=== PATIENT | female | born 1950 | race Caucasian/White ===

== ENCOUNTER 2021-02-28 13:16 | Inpatient (IN) ==
[2021-02-28] MEDS ORDERED: 0.9 % Sodium Chloride 1,000 ML IV ONE (14:20)
[2021-02-28 14:31] LABS: Basophils # 0.1 K/mcL (0.0-0.2); Basophils % 0.4 %; Eosinophils # 0.1 K/mcL (0.0-0.6); Hematocrit 49.1 % (35.3-44.9); Hemoglobin 16.1 g/dL (11.5-15.4); Immature Granulocytes % 0.6 % (0-4); Lymphocytes # 1.6 K/mcL (0.6-4.6); Lymphocytes % 14.3 %; Mean Corpuscular HGB Conc 32.8 g/dL (31.6-35.5); Mean Corpuscular Hemoglobin 29.4 pg (28.0-33.3); Mean Corpuscular Volume 89.8 fL (83.0-100.0); Mean Platelet Volume 10.4 fL (9.4-12.4); Monocytes # 1.3 K/mcL (0.0-1.3); Monocytes % 11.7 %; Neutrophils # 8.2 K/mcL (1.6-8.9); Platelet Count 240 K/mcL (140-400); Red Blood Count 5.47 M/mcL (3.82-4.97); Red Cell Distribution Width 13.9 % (11.5-14.5); White Blood Count 11.4 K/mcL (4.3-11.1)
[2021-02-28 14:38] LABS: INR 1.2; Prothrombin Time 13.3 Seconds (9.4-12.1)
[2021-02-28 14:41] LABS: Activated Partial Thrombo Time 33.7 Seconds (26.0-36.0)
[2021-02-28 15:07] LABS: Bilirubin,Urine Negative (Negative); Blood,Urine Trace (Negative); Clarity,Urine Clear (Clear); Color,Urine Light-Yellow (Yellow); Glucose,Urine (UA) >=1000 mg/dL (Normal); Ketones,Urine 60 mg/dL (Negative); Leukocyte Esterase,Urine Negative (Negative); Nitrite,Urine Negative (Negative); Protein,Urine 30 mg/dL (Neg-Trace); RBC,Urine 0-3 per hpf (0-3); Specific Gravity,Urine 1.025 (1.010-1.025); Squamous Epithelial Cell,Urine Few per hpf (None-Few); Urobilinogen,Urine Normal (Normal)
[2021-02-28] MEDS ORDERED: Isovue-370 500 ML BOTTLE IVP ONE (15:13)
[2021-02-28] MEDS ORDERED: Aspirin 325 MG TABLET PO ONE (15:15)
[2021-02-28 15:16] LABS: Amphetamine Screen,Urine Negative ng/mL (Cutoff=1000); Barbiturate Screen,Urine Negative ng/mL (Cutoff=200); Benzodiazepines Screen,Urine Negative ng/mL (Cutoff=200); Cannabinoid Screen,Urine Negative ng/mL (Cutoff = 50); Cocaine Screen,Urine Negative ng/mL (Cutoff= 300); Opiate Screen,Urine Negative ng/mL (Cutoff=300); Phencyclidine Screen,Urine Negative ng/mL (Cutoff=25)
[2021-02-28 15:33] LABS: Alanine Aminotransferase 15 Units/L (7-52); Albumin 4.4 g/dL (3.5-5.7); Albumin/Globulin Ratio 1.5 (1.1-2.2); Alkaline Phosphatase 73 Units/L (34-104); Aspartate Amino Transferase 15 Units/L (13-39); BUN/Creatinine Ratio 16 (6-26); Bilirubin,Direct 0.3 mg/dL (0.0-0.2); Bilirubin,Total 3.3 mg/dL (0.3-1.0); Blood Urea Nitrogen 12 mg/dL (8-23); Carbon Dioxide 29 mEq/L (23-29); Chloride 97 mEq/L (98-107); Ethanol < 10 mg/dL (Less than 10); Glucose 372 mg/dL (70-105); Osmolality,Calculated 297 (280-300); Potassium 3.8 mEq/L (3.5-5.1); Sodium 136 mEq/L (136-145); Thyroid Stimulating Hormone 2.878 mcIU/mL (0.340-5.600); Total Protein 7.4 g/dL (6.4-8.9); Troponin I < 0.03 ng/mL (< 0.04); eGFR For African Americans > 60 (> 60); eGFR For Non-African Americans > 60 (> 60)
[2021-02-28] MEDS ORDERED: Naloxone 0.4 MG/ML INJ IVP PRN (17:53)
[2021-02-28] MEDS ORDERED: Mag Hydrox/Al Hydrox/Simeth 30 ML UDC PO PRN (17:53)
[2021-02-28] MEDS ORDERED: Ondansetron ODT 4 MG TAB.RAPDIS SL PRN (17:53)
[2021-02-28] MEDS ORDERED: MOM Conc 10 ML UD.LIQ PO PRN (17:53)
[2021-02-28] MEDS ORDERED: Dextrose Gel 15 GM/37.5 ML TUBE PO PRN ×2 (17:57)
[2021-02-28] MEDS ORDERED: *HR* Dextrose 50 % in Water (Syg) 50 ML SYRINGE IVP PRN (17:57)
[2021-02-28] MEDS ORDERED: D5% in Water 1,000 ML IVC PRN (17:57)
[2021-02-28] MEDS ORDERED: Perflutren Lipid Microsphere 1.3 ML in 0.9 % Sodium Chloride 8.7 ML IVP PRN (19:37)
[2021-02-28] MEDS: Insulin LISPRO 300 UNITS/3 ML VIAL SUBQ SCH (20:44)
[2021-02-28] MEDS ORDERED: Insulin LISPRO 300 UNITS/3 ML VIAL SUBQ SCH (21:00)
[2021-02-28] MEDS ORDERED: Insulin DETEMIR 100 UNIT/ML X5UNITS SUBQ SCH (21:00)
[2021-02-28] MEDS: Melatonin 3 MG TABLET PO PRN (22:06)
[2021-02-28 22:30] LABS: Estimated Average Glucose 163 mg/dl; Hemoglobin A1C 7.3 %
[2021-02-28 22:39] LABS: ABG Base Excess 0 mEq/L (-2 to 3); ABG HCO3 22 mEq/L (21-27); ABG Oxygen Saturation 95 % (95-98); ABG PCO2 28 mmHg (35-45); ABG PO2 67 mmHg (85-104); ABG TCO2 23 mEq/L (20-26)
[2021-03-01 05:03] LABS: INR 1.3; Prothrombin Time 14.3 Seconds (9.4-12.1)
[2021-03-01 05:11] LABS: Alanine Aminotransferase 11 Units/L (7-52); Albumin/Globulin Ratio 1.6 (1.1-2.2); Alkaline Phosphatase 62 Units/L (34-104); Aspartate Amino Transferase 16 Units/L (13-39); BUN/Creatinine Ratio 18 (6-26); Bilirubin,Total 2.9 mg/dL (0.3-1.0); Blood Urea Nitrogen 13 mg/dL (8-23); Calcium 9.4 mg/dL (8.6-10.3); Carbon Dioxide 25 mEq/L (23-29); Chloride 99 mEq/L (98-107); Chol/HDL Ratio 5.7 (0-4.9); Cholesterol 251 mg/dL (< 200); Globulin 2.5 g/dL (2.4-3.5); Glucose 345 mg/dL (70-105); HDL Cholesterol 44 mg/dL (40-59); LDL Cholesterol,Calculated 182 mg/dL (< 100); Osmolality,Calculated 296 (280-300); Potassium 3.7 mEq/L (3.5-5.1); Sodium 136 mEq/L (136-145); Total Protein 6.5 g/dL (6.4-8.9); Triglycerides 126 mg/dL (< 150); Troponin I < 0.03 ng/mL (< 0.04); eGFR For African Americans > 60 (> 60); eGFR For Non-African Americans > 60 (> 60)
[2021-03-01 05:12] LABS: Estimated Average Glucose 163 mg/dl; Hemoglobin A1C 7.3 %
[2021-03-01] MEDS: *HR* Enoxaparin 40 MG/0.4 ML SYRINGE SQ SCH (06:24)
[2021-03-01 06:32] LABS: Hepatitis B Surface Antigen Nonreactive (Nonreactive)
[2021-03-01 07:01] LABS: Hepatitis C Virus Antibody Nonreactive (Nonreactive)
[2021-03-01 07:02] LABS: Hepatitis B Core IgM Nonreactive (Nonreactive)
[2021-03-01 07:04] LABS: Hepatitis A Antibody IgM Nonreactive (Nonreactive)
[2021-03-01] MEDS ORDERED: Aspirin 81 MG TAB.CHEW PO SCH (09:00)
[2021-03-01] MEDS: Insulin LISPRO 300 UNITS/3 ML VIAL SUBQ SCH ×4 (09:09→20:39)
[2021-03-01] MEDS: cefTRIAXone 1,000 MG in 0.9 % Sodium Chloride Mini Bag 100 ML IVPB SCH (12:09)
[2021-03-01] MEDS: lisinopriL 5 MG TABLET PO SCH (14:22)
[2021-03-01] MEDS: PARoxetine 20 MG TABLET PO SCH (14:22)
[2021-03-01] MEDS: atenoloL 50 MG TABLET PO SCH (14:22)
[2021-03-01] MEDS ORDERED: Insulin DETEMIR 100 UNIT/ML X5UNITS SUBQ SCH (21:00)
[2021-03-01] MEDS: QUEtiapine Fumarate 25 MG TABLET PO PRN (22:41)
[2021-03-01] MEDS: Melatonin 3 MG TABLET PO PRN (22:42)
[2021-03-02] MEDS: *HR* Enoxaparin 40 MG/0.4 ML SYRINGE SQ SCH (06:15)
[2021-03-02] MEDS: lisinopriL 5 MG TABLET PO SCH (08:34)
[2021-03-02] MEDS: PARoxetine 20 MG TABLET PO SCH (08:34)
[2021-03-02] MEDS: Aspirin Enteric Coated 81 MG Tablet PO SCH (08:35)
[2021-03-02] MEDS: cefTRIAXone 1,000 MG in 0.9 % Sodium Chloride Mini Bag 100 ML IVPB SCH (08:35)
[2021-03-02] MEDS: atenoloL 50 MG TABLET PO SCH (08:35)
[2021-03-02] MEDS: Insulin LISPRO 300 UNITS/3 ML VIAL SUBQ SCH ×4 (10:03→20:23)
[2021-03-02] MEDS ORDERED: Artificial Tears SOLN 15 ML BOTTLE BOTH EYES PRN (10:35)
[2021-03-02] MEDS ORDERED: Insulin DETEMIR 100 UNIT/ML X5UNITS SUBQ SCH (21:00)
[2021-03-03] MEDS ORDERED: *HR* LORazepam 2 MG/ML VIAL IVP ONE (02:06)
[2021-03-03] MEDS: *HR* Enoxaparin 40 MG/0.4 ML SYRINGE SQ SCH (05:42)
[2021-03-03] MEDS: Aspirin Enteric Coated 81 MG Tablet PO SCH (09:10)
[2021-03-03] MEDS: atenoloL 50 MG TABLET PO SCH (09:11)
[2021-03-03] MEDS: PARoxetine 20 MG TABLET PO SCH (09:11)
[2021-03-03] MEDS: lisinopriL 5 MG TABLET PO SCH (09:12)
[2021-03-03] MEDS: Insulin LISPRO 300 UNITS/3 ML VIAL SUBQ SCH ×4 (09:12→21:09)
[2021-03-03] MEDS: Insulin DETEMIR 100 UNIT/ML X5UNITS SUBQ SCH (21:08)
[2021-03-04] MEDS: QUEtiapine Fumarate 25 MG TABLET PO PRN (01:52)
[2021-03-04] MEDS: Melatonin 3 MG TABLET PO PRN (01:52)
[2021-03-04] MEDS: *HR* Enoxaparin 40 MG/0.4 ML SYRINGE SQ SCH (04:51)
[2021-03-04] MEDS: Aspirin Enteric Coated 81 MG Tablet PO SCH (09:14)
[2021-03-04] MEDS: atenoloL 50 MG TABLET PO SCH (09:14)
[2021-03-04] MEDS: lisinopriL 5 MG TABLET PO SCH (09:14)
[2021-03-04] MEDS: PARoxetine 20 MG TABLET PO SCH (09:15)
[2021-03-04] MEDS: Insulin LISPRO 300 UNITS/3 ML VIAL SUBQ SCH ×4 (09:16→20:36)
[2021-03-04] MEDS: Insulin DETEMIR 100 UNIT/ML X5UNITS SUBQ SCH (20:35)
[2021-03-05] MEDS: *HR* Enoxaparin 40 MG/0.4 ML SYRINGE SQ SCH (06:16)
[2021-03-05 06:37] LABS: Hematocrit 48.3 % (35.3-44.9); Hemoglobin 15.7 g/dL (11.5-15.4); Mean Corpuscular HGB Conc 32.5 g/dL (31.6-35.5); Mean Corpuscular Hemoglobin 29.7 pg (28.0-33.3); Mean Corpuscular Volume 91.5 fL (83.0-100.0); Mean Platelet Volume 10.9 fL (9.4-12.4); Platelet Count 195 K/mcL (140-400); Red Blood Count 5.28 M/mcL (3.82-4.97); Red Cell Distribution Width 13.9 % (11.5-14.5); White Blood Count 10.4 K/mcL (4.3-11.1)
[2021-03-05] MEDS: lisinopriL 5 MG TABLET PO SCH (08:32)
[2021-03-05] MEDS: Aspirin Enteric Coated 81 MG Tablet PO SCH (08:32)
[2021-03-05] MEDS: PARoxetine 20 MG TABLET PO SCH (08:32)
[2021-03-05] MEDS: atenoloL 50 MG TABLET PO SCH (08:33)
[2021-03-05] MEDS: Insulin LISPRO 300 UNITS/3 ML VIAL SUBQ SCH ×4 (08:33→20:40)
[2021-03-05] MEDS ORDERED: Insulin DETEMIR 100 UNIT/ML X5UNITS SUBQ ONE (11:41)
[2021-03-05] MEDS: Insulin DETEMIR 100 UNIT/ML X5UNITS SUBQ SCH (20:39)
[2021-03-06] MEDS: *HR* Enoxaparin 40 MG/0.4 ML SYRINGE SQ SCH (05:21)
[2021-03-06] MEDS: lisinopriL 5 MG TABLET PO SCH (08:50)
[2021-03-06] MEDS: PARoxetine 20 MG TABLET PO SCH (08:50)
[2021-03-06] MEDS: Aspirin Enteric Coated 81 MG Tablet PO SCH (08:50)
[2021-03-06] MEDS: atenoloL 50 MG TABLET PO SCH (08:51)
[2021-03-06] MEDS: Insulin LISPRO 300 UNITS/3 ML VIAL SUBQ SCH ×4 (08:53→22:57)
[2021-03-06] MEDS ORDERED: *HR* LORazepam 2 MG/ML VIAL IVP ONE (20:56)
[2021-03-06] MEDS: Insulin DETEMIR 100 UNIT/ML X5UNITS SUBQ SCH (22:57)
[2021-03-07] MEDS: *HR* Enoxaparin 40 MG/0.4 ML SYRINGE SQ SCH (06:08)
[2021-03-07] MEDS: PARoxetine 20 MG TABLET PO SCH (08:45)
[2021-03-07] MEDS: Aspirin Enteric Coated 81 MG Tablet PO SCH (08:45)
[2021-03-07] MEDS: lisinopriL 5 MG TABLET PO SCH (08:46)
[2021-03-07] MEDS: atenoloL 50 MG TABLET PO SCH (08:46)
[2021-03-07] MEDS: Insulin LISPRO 300 UNITS/3 ML VIAL SUBQ SCH ×4 (08:47→20:55)
[2021-03-07] MEDS: QUEtiapine Fumarate 25 MG TABLET PO SCH ×2 (18:59→20:54)
[2021-03-07] MEDS: Insulin DETEMIR 100 UNIT/ML X5UNITS SUBQ SCH (20:54)
[2021-03-07] MEDS ORDERED: QUEtiapine Fumarate 25 MG TABLET PO SCH (21:00)
[2021-03-08] MEDS: *HR* Enoxaparin 40 MG/0.4 ML SYRINGE SQ SCH (06:37)
[2021-03-08] MEDS: PARoxetine 20 MG TABLET PO SCH (08:26)
[2021-03-08] MEDS: Aspirin Enteric Coated 81 MG Tablet PO SCH (08:26)
[2021-03-08] MEDS: Insulin LISPRO 300 UNITS/3 ML VIAL SUBQ SCH ×2 (08:27→11:33)
[2021-03-08] MEDS: atenoloL 50 MG TABLET PO SCH (08:27)
[2021-03-08] MEDS: lisinopriL 5 MG TABLET PO SCH (08:27)
[2021-03-08 11:36] VITALS: BP 117/77; PULSE 52; TEMP 98.6; O2SAT 93
[2021-03-08] MEDS ORDERED: FLU Vac QV 21-22 (6Month+)/PF 0.5 ML SYRINGE IM ONE (11:44)
[2021-03-08 12:57] LABS: Adenovirus Not Detected (Not Detect); Bordetella Pertussis Not Detected (Not Detect); Chlamydophila pneumoniae Not Detected (Not Detect); Coronavirus 229E Not Detected (Not Detect); Coronavirus HKU1 Not Detected (Not Detect); Coronavirus NL63 Not Detected (Not Detect); Coronavirus OC43 Not Detected (Not Detect); Human Metapneumovirus Not Detected (Not Detect); Human Rhinovirus/Enterovirus Not Detected (Not Detect); Influenza A Subtype 2009 H1 Not Detected (Not Detect); Influenza B Not Detected (Not Detect); Mycoplasma pneumoniae Not Detected (Not Detect); Parainfluenza Virus 1 Not Detected (Not Detect); Parainfluenza Virus 2 Not Detected (Not Detect); Parainfluenza Virus 3 Not Detected (Not Detect); Parainfluenza Virus 4 Not Detected (Not Detect); Respiratory Syncytial Virus Not Detected (Not Detect); SARS-CoV-2 Not Detected (Not Detect)
== END 2021-03-08 15:45 | disposition other institution (70) | DRG 56 ==
LOC: EMEROOARM 13:16 → 3BNU 13:16 → SUATTDRO 17:45 → 3BNU 18:39 → SUATTDRO 03-02 14:36 → 4WAOSI 03-04 21:03
PROVIDERS: ADMIT Internal Medicine; ATTEND Student in an Organized Health Care Education/Training Program

== ENCOUNTER 2021-07-22 09:45 | Inpatient (IN) ==
[2021-07-22] MEDS ORDERED: 0.9 % Sodium Chloride 1,000 ML IVC ONE (10:19)
[2021-07-22] MEDS ORDERED: Isovue-370 500 ML BOTTLE IVP ONE ×2 (10:20→15:23)
[2021-07-22] MEDS ORDERED: Ondansetron 4 MG/2 ML VIAL IVP ONE (10:22)
[2021-07-22 11:06] LABS: Alanine Aminotransferase 24 Units/L (7-52); Albumin 3.4 g/dL (3.5-5.7); Albumin/Globulin Ratio 1.3 (1.1-2.2); Alkaline Phosphatase 57 Units/L (34-104); Aspartate Amino Transferase 29 Units/L (13-39); BUN/Creatinine Ratio 20 (6-26); Bilirubin,Direct 0.3 mg/dL (0.0-0.2); Bilirubin,Indirect 1.8 mg/dL (0.0-1.0); Bilirubin,Total 2.1 mg/dL (0.3-1.0); Blood Urea Nitrogen 20 mg/dL (8-23); Calcium 9.1 mg/dL (8.6-10.3); Carbon Dioxide 30 mEq/L (23-29); Chloride 99 mEq/L (98-107); Globulin 2.7 g/dL (2.4-3.5); Glucose 136 mg/dL (70-105); Lipase 4 Units/L (11-82); Osmolality,Calculated 287 (280-300); Potassium 3.7 mEq/L (3.5-5.1); Sodium 136 mEq/L (136-145); Total Protein 6.1 g/dL (6.4-8.9); Troponin I 0.03 ng/mL (< 0.04); eGFR For African Americans > 60 (> 60); eGFR For Non-African Americans 56 (> 60)
[2021-07-22 11:33] LABS: Influenza A PCR Negative (Negative); Influenza B PCR Negative (Negative); Resp. Syncytial Virus PCR Negative (Negative)
[2021-07-22 11:33] LABS: Basophils % 0.2 %; Hematocrit 48.8 % (35.3-44.9); Hemoglobin 15.7 g/dL (11.5-15.4); Immature Granulocytes % 0.5 % (0-4); Lymphocytes # 2.1 K/mcL (0.6-4.6); Lymphocytes % 9.8 %; Mean Corpuscular HGB Conc 32.2 g/dL (31.6-35.5); Mean Corpuscular Hemoglobin 30.3 pg (28.0-33.3); Mean Corpuscular Volume 94.2 fL (83.0-100.0); Mean Platelet Volume 11.7 fL (9.4-12.4); Monocytes # 3.2 K/mcL (0.0-1.3); Monocytes % 15.3 %; Neutrophils # 15.6 K/mcL (1.6-8.9); Platelet Count 216 K/mcL (140-400); Red Blood Count 5.18 M/mcL (3.82-4.97); Red Cell Distribution Width 14.4 % (11.5-14.5); Segmented Neutrophils % 74.2 %
[2021-07-22 11:34] LABS: INR 1.4; Prothrombin Time 15.1 Seconds (9.4-12.1)
[2021-07-22 11:36] LABS: SARS-CoV-2 by PCR (In House) Positive (Negative)
[2021-07-22 11:37] LABS: Activated Partial Thrombo Time 27.8 Seconds (26.0-36.0)
[2021-07-22] MEDS ORDERED: *HR* Metoprolol 5 MG/5 ML VIAL IVP ONE (13:44)
[2021-07-22 14:23] LABS: Bilirubin,Urine Negative (Negative); Blood,Urine Moderate (Negative); Clarity,Urine Clear (Clear); Color,Urine Light-Orange (Yellow); Glucose,Urine (UA) Normal (Normal); Ketones,Urine Negative (Negative); Leukocyte Esterase,Urine Small (Negative); Mucus,Urine Few per lpf (None-Few); Nitrite,Urine Negative (Negative); PH,Urine 6.5 pH Units (5.0-8.0); Protein,Urine 100 mg/dL (Neg-Trace); Specific Gravity,Urine > 1.030 (1.010-1.025); Squamous Epithelial Cell,Urine Many per hpf (None-Few); Urobilinogen,Urine Normal (Normal)
[2021-07-22] MEDS ORDERED: *HR* Labetalol 20 MG/4 ML SYRINGE IVP ONE (14:59)
[2021-07-22] MEDS ORDERED: 0.9 % Sodium Chloride 1,000 ML IV ONE (14:59)
[2021-07-22] MEDS ORDERED: levoFLOXacin 750 MG/150 ML 750 MG/150 ML BAG IVPB ONE (15:02)
[2021-07-22] MEDS ORDERED: Perflutren Lipid Microsphere 1.3 ML in 0.9 % Sodium Chloride 8.7 ML IVP PRN (18:07)
[2021-07-22] MEDS ORDERED: Naloxone 0.4 MG/ML INJ IVP PRN (18:08)
[2021-07-22] MEDS ORDERED: Ondansetron 4 MG/2 ML VIAL IVP PRN (18:08)
[2021-07-22] MEDS: 0.9 % Sodium Chloride 1,000 ML IVC SCH ×3 (18:43→22:04)
[2021-07-22] MEDS ORDERED: Dextrose Gel 15 GM/37.5 ML TUBE PO PRN ×2 (19:33)
[2021-07-22] MEDS ORDERED: D5% in Water 1,000 ML IVC PRN (19:33)
[2021-07-22] MEDS ORDERED: *HR* Dextrose 50 % in Water (Syg) 50 ML SYRINGE IVP PRN (19:33)
[2021-07-22] MEDS: Gabapentin 300 MG CAPSULE PO SCH (20:17)
[2021-07-22] MEDS: atenoloL 50 MG TABLET PO SCH (20:17)
[2021-07-22] MEDS: Insulin DETEMIR 100 UNIT/ML X5UNITS SUBQ SCH (20:18)
[2021-07-22] MEDS: *HR* Enoxaparin 120 MG/0.8 ML SYRINGE SQ SCH (20:21)
[2021-07-22] MEDS: Meropenem 1,000 MG in 0.9 % Sodium Chloride Mini Bag 100 ML IVP SCH (23:15)
[2021-07-23] MEDS: 0.9 % Sodium Chloride 1,000 ML IVC SCH (00:13)
[2021-07-23 07:01] LABS: Basophils # 0.1 K/mcL (0.0-0.2); Basophils % 0.3 %; Eosinophils # 0.1 K/mcL (0.0-0.6); Eosinophils % 0.9 %; Hematocrit 42.7 % (35.3-44.9); Immature Granulocytes % 0.7 % (0-4); Lymphocytes # 1.8 K/mcL (0.6-4.6); Lymphocytes % 11.8 %; Mean Corpuscular HGB Conc 31.6 g/dL (31.6-35.5); Mean Corpuscular Hemoglobin 30.5 pg (28.0-33.3); Mean Corpuscular Volume 96.6 fL (83.0-100.0); Mean Platelet Volume 11.5 fL (9.4-12.4); Monocytes # 2.7 K/mcL (0.0-1.3); Monocytes % 17.6 %; Neutrophils # 10.6 K/mcL (1.6-8.9); Platelet Count 160 K/mcL (140-400); Red Blood Count 4.42 M/mcL (3.82-4.97); Red Cell Distribution Width 14.3 % (11.5-14.5); Segmented Neutrophils % 68.7 %; White Blood Count 15.5 K/mcL (4.3-11.1)
[2021-07-23 07:24] LABS: Alanine Aminotransferase 20 Units/L (7-52); Albumin 2.9 g/dL (3.5-5.7); Albumin/Globulin Ratio 1.3 (1.1-2.2); Alkaline Phosphatase 52 Units/L (34-104); Aspartate Amino Transferase 26 Units/L (13-39); BUN/Creatinine Ratio 16 (6-26); Bilirubin,Total 1.4 mg/dL (0.3-1.0); Blood Urea Nitrogen 16 mg/dL (8-23); Calcium 7.9 mg/dL (8.6-10.3); Carbon Dioxide 29 mEq/L (23-29); Chloride 104 mEq/L (98-107); Globulin 2.3 g/dL (2.4-3.5); Glucose 64 mg/dL (70-105); Osmolality,Calculated 285 (280-300); Potassium 3.7 mEq/L (3.5-5.1); Sodium 138 mEq/L (136-145); Total Protein 5.2 g/dL (6.4-8.9); eGFR For African Americans > 60 (> 60); eGFR For Non-African Americans 53 (> 60)
[2021-07-23] MEDS: Meropenem 1,000 MG in 0.9 % Sodium Chloride Mini Bag 100 ML IVP SCH ×3 (07:35→23:20)
[2021-07-23] MEDS: atenoloL 50 MG TABLET PO SCH (07:35)
[2021-07-23] MEDS: Gabapentin 300 MG CAPSULE PO SCH ×2 (07:35→20:01)
[2021-07-23] MEDS: *HR* Enoxaparin 120 MG/0.8 ML SYRINGE SQ SCH ×2 (07:36→18:17)
[2021-07-23] MEDS: Insulin LISPRO 300 UNITS/3 ML VIAL SUBQ SCH ×2 (07:43→18:24)
[2021-07-23] MEDS: PARoxetine 20 MG TABLET PO SCH (07:55)
[2021-07-23] MEDS: Aspirin Enteric Coated 81 MG Tablet PO SCH (07:55)
[2021-07-23 08:03] LABS: Hemoglobin 13.5 g/dL (11.5-15.4)
[2021-07-23 16:36] LABS: Bilirubin,Urine Negative (Negative); Blood,Urine Large (Negative); Clarity,Urine Clear (Clear); Color,Urine Yellow (Yellow); Glucose,Urine (UA) Normal (Normal); Ketones,Urine Trace mg/dL (Negative); Leukocyte Esterase,Urine Negative (Negative); Mucus,Urine Few per lpf (None-Few); Nitrite,Urine Negative (Negative); PH,Urine 6.5 pH Units (5.0-8.0); Protein,Urine 200 mg/dL (Neg-Trace); Specific Gravity,Urine > 1.030 (1.010-1.025); Squamous Epithelial Cell,Urine Few per hpf (None-Few); Urobilinogen,Urine Normal (Normal)
[2021-07-23] MEDS ORDERED: Furosemide 20 MG TABLET PO ONE (17:45)
[2021-07-23] MEDS: Insulin DETEMIR 100 UNIT/ML X5UNITS SUBQ SCH (20:01)
[2021-07-24] MEDS: *HR* Enoxaparin 120 MG/0.8 ML SYRINGE SQ SCH (05:40)
[2021-07-24] MEDS ORDERED: Furosemide 20 MG/2 ML VIAL IVP ONE (08:21)
[2021-07-24] MEDS: Insulin LISPRO 300 UNITS/3 ML VIAL SUBQ SCH (08:53)
[2021-07-24] MEDS: Gabapentin 300 MG CAPSULE PO SCH (08:53)
[2021-07-24] MEDS: Aspirin Enteric Coated 81 MG Tablet PO SCH (08:54)
[2021-07-24] MEDS: PARoxetine 20 MG TABLET PO SCH (08:54)
[2021-07-24] MEDS: atenoloL 50 MG TABLET PO SCH (08:54)
[2021-07-24] MEDS ORDERED: *HR* Metoprolol 5 MG/5 ML VIAL IVP PRN (09:09)
[2021-07-24] MEDS ORDERED: *HR* Metoprolol 5 MG/5 ML VIAL IVP STA (09:11)
[2021-07-24] MEDS ORDERED: atenoloL 25 MG TABLET PO SCH (09:15)
[2021-07-24] MEDS: Meropenem 1,000 MG in 0.9 % Sodium Chloride Mini Bag 100 ML IVP SCH (09:54)
[2021-07-24 14:21] VITALS: BP 116/62; PULSE 90; TEMP 97.7; O2SAT 95
[2021-07-24] MEDS ORDERED: DilTIAZem CD (24hr) 120 MG CAP.ER.24H PO SCH (14:30)
== END 2021-07-24 16:46 | disposition home or self-care (01) | DRG 871 ==
LOC: EMEROOARM 09:45 → 3BNU 09:45 → SUATTDRO 18:08 → 3BNU 18:08
PROVIDERS: ADMIT General Practice; ATTEND Student in an Organized Health Care Education/Training Program